=== PATIENT | male | born 1975 | race Caucasian/White ===

== ENCOUNTER 2018-03-25 14:56 | Emergency (ER) | payer SELFPAY ==
[2018-03-25 15:13] VITALS: BP 130/92
--- NOTE | 2018-03-25 15:15 | UC ---
Ear Complaint HPI - HPI Summary HPI Summary: 42 yo male presents with sinus pain/pressure/congestion, R>L ear pain, and headache for the last 3 days getting progressively worse. He tells me that he has a hx of ear infections. Has felt hot/cold at times, but has not taken his temperature. Has not taken anything OTC. Denies sore throat, cough, SOB, chest pain, abdominal pain, n/v. - History of Current Complaint Chief Complaint: UCGeneralIllness Stated Complaint: EAR PAIN Time Seen by Provider: 03/25/18 15:15 Hx Obtained From: Patient Onset/Duration: Gradual Onset Severity Initially: Moderate Severity Currently: Severe Pain Intensity: 9 Pain Scale Used: 0-10 Numeric - Allergies/Home Medications Allergies/Adverse Reactions: Allergies Allergy/AdvReac Type Severity Reaction Status Date / Time No Known Allergies Allergy Verified 03/25/18 15:13 PMH/Surg Hx/FS Hx/Imm Hx Respiratory History: Asthma - Surgical History Surgical History: Yes Surgery Procedure, Year, and Place: nasal 2010 septum. testicular as a child - Family History Known Family History: Positive: Unknown - Social History Lives: Alone Alcohol Use: None Substance Use Type: None Smoking Status (MU): Never Smoked Tobacco Review of Systems All Other Systems Reviewed And Are Negative: Yes Constitutional: Positive: Negative Skin: Positive: Negative Eyes: Positive: Negative ENT: Positive: Ear Ache, Nasal Discharge, Sinus Congestion, Sinus Pain/ Tenderness Respiratory: Positive: Negative Cardiovascular: Positive: Negative Gastrointestinal: Positive: Negative Neurovascular: Positive: Negative Neurological: Positive: Negative Psychological: Positive: Negative Physical Exam - Summary Physical Exam Summary: GENERAL: NAD. WDWN. No pain distress. SKIN: No rashes, sores, lesions, or open wounds. HEENT: Head: AT/NC Eyes: EOM intact. Conjunctiva clear without inflammation or discharge. Ears: Hearing grossly normal. RIGHT TM with mild erythema and bulging. No canal edema or drainage. LEFT TM intact. Nose: Nasal mucosa pink and moist. TTP maxillary and frontal sinus. Throat: Posterior oropharynx without exudates, erythema, or tonsillar enlargement. Uvula midline. NECK: Supple. Nontender. No lymphadenopathy. CHEST: CTAB. No r/r/w. No accessory muscle use. Breathing comfortably and in no distress. CV: RRR. Without m/r/g. Pulses intact. NEURO: Alert. PSYCH: Age appropriate behavior. Triage Information Reviewed: Yes Vital Signs: Initial Vital Signs Temp 101.5 F 03/25/18 15:10 Pulse 101 03/25/18 15:10 Resp 18 03/25/18 15:10 BP 130/92 03/25/18 15:10 Pulse Ox 100 03/25/18 15:10 Laboratory Tests 03/25/18 15:50 Influenza A (Rapid) Negative Influenza B (Rapid) Negative Vital Signs Reviewed: Yes Ear Complaint Course/Dx - Course Course Of Treatment: Right otitis media - Differential Dx/Diagnosis Provider Diagnosis: Right otitis media Discharge - Sign-Out/Discharge Documenting (check all that apply): Patient Departure All imaging exams completed and their final reports reviewed: No Studies - Discharge Plan Condition: Stable Disposition: HOME Prescriptions: Albuterol HFA INHALER* [Ventolin HFA Inhaler*] 1 puff INH Q6H PRN #1 mdi PRN Reason: Wheezing Amoxicillin/Clavulanate TAB* [Augmentin TAB 875*] 875 mg PO BID #20 tab Patient Education Materials: Ear Infection (ED) Referrals: No Primary Care Phys,NOPCP [Primary Care Provider] - Additional Instructions: If you develop a fever, shortness of breath, chest pain, new or worsening symptoms - please call your PCP or go to the ED. Your blood pressure was high at todays visit. Please see your primary provider within 4 weeks for recheck and re-evaluation. - Billing Disposition and Condition Condition: STABLE Disposition: Home
== END 2018-03-25 16:08 | disposition home or self-care (01) ==
LOC: UCEAST 14:56
DX: H66.91 Otitis media, unspecified, right ear (principal)
CPT/HCPCS: 99202; G0463

== ENCOUNTER 2018-03-27 06:58 | Emergency (ER) | payer SELFPAY ==
[2018-03-27] MEDS ORDERED: NS 0.9% 1000 ML*IV.FLUID IV ONE (07:29)
[2018-03-27] MEDS ORDERED: Piperacillin/Tazobac ADVAN(*) 3.375 GM in NS 0.9% 100 ML* 100 ML IVPB ONE (07:29)
[2018-03-27] MEDS ORDERED: Albuterol HFA INHALER* 8 gm MDI INH ONE (07:39)
[2018-03-27] MEDS ORDERED: Ondansetron INJ* 2 MG/ML VIAL IV ONE (07:39)
--- NOTE | 2018-03-27 07:42 | ED ---
Influenza-Like Illness - HPI Summary HPI Summary: Patient is an otherwise healthy 42-year-old male presenting to the ED with 1 week history of bilateral ear pain, swollen glands, body aches, nausea, vomiting and most recently diarrhea. He was seen at the 4 days ago and was given Augmentin for a right-sided ear infection. He states since that time he has been having diarrhea. He states he is unable to sleep. Endorses fevers, sweats, chills. Fever is subjective. Endorses diffuse body aches. He did not receive the flu vaccination this year. He denies any throat pain, rhinorrhea or cough. Denies any chest pain. He is otherwise healthy, takes no medications and denies any known allergies. - History of Current Complaint Chief Complaint: EDNauseaVomitDiarrh Time Seen by Provider: 03/27/18 07:15 Hx Obtained From: Patient Onset/Duration: Sudden Onset Severity: Moderate Associated Signs & Symptoms: Fever, T Max - 100, F/C, Myalgia, Vomiting, Diarrhea Related Hx: Possible Flu/Infectious Exposure - Risk Factors Influenza Risk Factors: Negative - Allergy/Home Medications Allergies/Adverse Reactions: Allergies Allergy/AdvReac Type Severity Reaction Status Date / Time No Known Allergies Allergy Verified 03/25/18 15:13 PMH/Surg Hx/FS Hx/Imm Hx Previously Healthy: Yes Endocrine/Hematology History: Denies: Hx Diabetes, Hx Thyroid Disease Cardiovascular History: Denies: Hx Hypertension Respiratory History: Reports: Hx Asthma Denies: Hx Chronic Obstructive Pulmonary Disease (COPD) GI History: Denies: Hx Ulcer - Surgical History Surgery Procedure, Year, and Place: nasal 2010 septum. testicular as a child - Immunization History Hx Pertussis Vaccination: No Immunizations Up to Date: Yes Infectious Disease History: No Infectious Disease History: Denies: Hx Hepatitis, Hx Human Immunodeficiency Virus (HIV), Traveled Outside the [place] in Last 30 Days - Family History Known Family History: Positive: Unknown - Social History Occupation: Employed Full-time Lives: With Family Alcohol Use: None Hx Substance Use: No Substance Use Type: Reports: None Hx Tobacco Use: No Smoking Status (MU): Never Smoked Tobacco Review of Systems - ROS Summary Review of Systems Summary: Constitutional: The patient endorses fever, headache, sweats, chills. HEENT: Head: The patient denies dizziness, however endorses headaches. Eyes: The patient denies diplopia, blurry vision, eye pain, eye discharge, photophobia. Throat: The patient denies sore throats or hoarseness. Cardiovascular: The patient denies chest pain, palpitations, syncope, night cramps, or orthostasis. Respiratory: The patient denies cough, sputum production, hemoptysis, dyspnea, wheezing. Gastrointestinal: The patient denies odynophagia, dysphagia, hematemesis, melenemesis. Endorses mild abdominal pain, nausea, vomiting and most recently diarrhea after taking abx. Genitourinary: Patient denies dysuria, hematuria, or pyuria. Patient denies back pain. Denies other urinary symptoms. Muscles: The patient endorses diffuse myalgias and weakness. Joints: The patient endorses arthralgias diffusely throughout. Neurologic: The patient denies headache, loss of consciousness, or seizure. Dermatologic: The patient denies hyperpigmentation, rash, or photosensitivity. Denies any known tick bites. Positive: Fever, Chills, Fatigue, Skin Diaphoresis Negative: Blurred Vision, Diplopia, Drainage Positive: Ear Ache. Negative: Epistaxis, Dental Pain, Sore Throat, Nasal Discharge Negative: Palpitations, Chest Pain Negative: Shortness Of Breath, Cough Positive: Abdominal Pain, Vomiting, Diarrhea, Nausea Genitourinary: Negative Positive: no symptoms reported, see HPI Positive: Myalgia. Negative: Arthralgia Negative: Rash, Bruising Positive: Weakness. Negative: Headache, Paresthesia, Numbness, Syncope All Other Systems Reviewed And Are Negative: Yes Physical Exam - Summary Physical Exam Summary: Appearance: Appears ill, diaphoretic Skin: Soft dry skin, no lesions. Diaphoretic. Eyes: MARIA G, EOMI, Conjunctiva pink with no redness or exudates. Ears: TMs normal with positive cone of light, no erythema bilaterally. Mouth: Dentition without lesions. Dry mucosa. Neck: Full range of motion. Palpable thyroid. Trachea at midline. No lymphadenopathy. Pulm: Chest symmetrical expansion. No deformities on posterior chest wall. Lungs clear to auscultation and percussion, without adventitious sounds. CV: No JVD. No deformities on anterior chest wall. Heart sounds. RRR. Normal S1 and single S2. No S3, S4, rubs, or murmurs. Carotids 2+ bilaterally without bruits. . exam not performed GI: Bowel sounds WNL in all 4 quadrants. No pain on deep palpation of all 4 quadrants. Negative waters's, negative obturator. Psoas not performed. No pain over Mcburney's point. Musculoskeletal: Flexion and extension of neck without limitations. ROM WNL in all extremities. No deformities noted. Pulses +2 bilaterally. Neuro: Motor strength is 5/5 in upper and lower extremities bilaterally. A&OX3 Psych: Logical, coherent Triage Information Reviewed: Yes Vital Signs On Initial Exam: Initial Vitals Temp Pulse Resp BP Pulse Ox 100 F 110 20 145/76 98 03/27/18 07:00 03/27/18 07:00 03/27/18 07:00 03/27/18 07:00 03/27/18 07:00 Vital Signs Reviewed: Yes Appearance: Positive: Ill-Appearing Skin: Positive: Skin Color Reflects Adequate Perfusion, Diaphoretic Head/Face: Positive: Normal Head/Face Inspection Eyes: Positive: EOMI, MARIA G, Conjunctiva Clear ENT: Positive: Pharynx normal, TMs normal, Uvula midline. Negative: Nasal congestion, Nasal drainage, Tonsillar swelling, Tonsillar exudate, Sinus tenderness Neck: Positive: Supple, No Lymphadenopathy Respiratory/Lung Sounds: Positive: Clear to Auscultation, Breath Sounds Present Cardiovascular: Positive: RRR, Pulses are Symmetrical in both Upper and Lower Extremities Abdomen Description: Positive: Nontender, No Organomegaly, Bruit Bowel Sounds: Positive: Present Musculoskeletal: Positive: Normal, Strength/ROM Intact Neurological: Positive: Sensory/Motor Intact, Alert, Oriented to Person Place, Time, Speech Normal Psychiatric: Positive: Normal, Affect/Mood Appropriate AVPU Assessment: Alert Diagnostics - Vital Signs Vital Signs Temp Pulse Resp BP Pulse Ox 03/27/18 07:00 100 F 110 20 145/76 98 - Laboratory Result Diagrams: 03/27/18 09:01 03/27/18 08:28 Lab Statement: Any lab studies that have been ordered have been reviewed, and results considered in the medical decision making process. Flu Symptom Course/Dx - Course Course Of Treatment: Sepsis protocol initiated. Despite taking Tylenol and ibuprofen, patient arrives with a 100.0 temperature, heart rate of 110, respirations 20, 98% on room air. Patient is diaphoretic and appears ill. Chest x-ray obtained, urinalysis obtained. IV fluids and Zosyn per sepsis protocol initiated. Flu swab obtained. Chest x-ray shows no active acute cardiopulmonary disease. UA obtained which shows protein and blood without leukocytes or WBCs. Patient continues to deny any abdominal pain or back pain. Negative for CVA tenderness on physical exam. No abdominal distention, negative Waters's negative Rovsing's negative psoas. He is at 13,000 leukocytosis. Patient is improved after fluids and Zosyn is given. There is no clear indication of arterial infection. Patient will remain on his Augmentin for his ear infection which appears to be have cleared up at this time on physical exam. He will continue at home fluids, ibuprofen and Tylenol. He is given Zofran for any nausea. He will return if he develops any worsening symptoms. He is diagnosed with viral syndrome. Influenza negative. - Diagnoses Differential Diagnosis/HQI/PQRI: Positive: Pneumonia, Upper Respiratory Infection Provider Diagnoses: Viral syndrome Critical Care Time: 30-74 min Discharge - Sign-Out/Discharge Documenting (check all that apply): Patient Departure - Discharge Plan Condition: Stable Disposition: HOME Prescriptions: Ondansetron ODT TAB* [Zofran 4 MG Odt TAB*] 4 mg PO Q6H PRN #12 tab.odt MDD 4 PRN Reason: Nausea Patient Education Materials: Dehydration (ED), Acute Nausea and Vomiting (ED), Viral Syndrome (ED) Referrals: No Primary Care Phys,NOPCP [Primary Care Provider] - Additional Instructions: Zofran as needed up to every 4 hours for nausea and vomiting Drink plenty of fluids including Gatorade and paul mikaela Try to even possible Tylenol 650 mg 4 times daily Ibuprofen 600 mg 4 times daily Use these intermittently Get plenty of rest Return to the ED if he develop any worsening symptoms - Billing Disposition and Condition Condition: STABLE Disposition: Home
[2018-03-27 08:06] LABS: Urine Appearance Cloudy; Urine Bacteria Absent (Absent); Urine Bilirubin Negative (Negative); Urine Blood 1+ (Negative); Urine Color Amber; Urine Glucose Negative (Negative); Urine Ketones Trace (Negative); Urine Nitrite Negative (Negative); Urine Protein 2+(100 mg/dL) (Negative); Urine Red Blood Cell Trace(0-2/hpf) (Absent); Urine Specific Gravity 1.028 (1.010-1.030); Urine Urobilinogen Positive (Negative); Urine White Blood Cell Trace(0-5/hpf) (Absent)
[2018-03-27 08:47] LABS: Activated Partial Thrombo Time 18.8 seconds (26.0-36.3); INR 1.1 (0.77-1.02)
[2018-03-27 08:55] LABS: Albumin/Globulin Ratio 0.8 (1-3); BUN/Creatinine Ratio 16.7 (8-20); C Reactive Protein 178.4 mg/L (<8.01); Calcium 8.2 mg/dL (8.6-10.3); EGFR Non-African American 86.3 (>60); Globulin 3.8 g/dL (2-4); Potassium 3.5 mmol/L (3.5-5.0); Total Bilirubin 0.8 mg/dL (0.2-1.0); Total Protein 6.8 g/dL (6.4-8.9)
[2018-03-27 09:08] LABS: ABS Basophils 0 10^3/ul (0-0.2); ABS Eosinophils 0 10^3/ul (0-0.6); ABS Lymphocytes 1.4 10^3/ul (1.0-4.8); ABS Monocytes 1.4 10^3/ul (0-0.8); ABS Neutrophils 10.8 10^3/ul (1.5-7.7); ABS Nucleated RBC 0 10^3/ul; Eosinophil % 0.1 %; Hematocrit 37 % (42-52); Hemoglobin 12.6 g/dl (14.0-18.0); Lymphocyte % 10.6 %; Mean Corpuscular HGB Conc 34 g/dl (31-36); Mean Corpuscular Hemoglobin 29 pg (27-31); Mean Corpuscular Volume 85 fL (80-94); Mean Platelet Volume 7.8 fL (7.4-10.4); Nucleated Red Blood Cells % 0.1; Platelet Count 236 10^3/ul (150-450); Red Blood Count 4.32 10^6/ul (4.00-5.40); Red Cell Distribution Width 13 % (10.5-15); White Blood Count 13.7 10^3/ul (3.5-10.8)
[2018-03-27 10:04] LABS: Erythrocyte Sed Rate 59 mm/Hr (0-14)
[2018-03-27 10:59] VITALS: BP 120/72
[2018-03-27] MEDS ORDERED: Ondansetron ODT TAB* 4 MG SL ONE (11:03)
== END 2018-03-27 11:22 | disposition home or self-care (01) ==
LOC: ED 06:58
DX: B34.9 Viral infection, unspecified (principal); R50.9 Fever, unspecified; R53.83 Other fatigue; H92.09 Otalgia, unspecified ear; R53.1 Weakness; R10.9 Unspecified abdominal pain; R11.2 Nausea with vomiting, unspecified; R19.7 Diarrhea, unspecified
CPT/HCPCS: 36415; 71046; 80053; 81003; 81015; 83605; 84484; 85025; 85610; 85652; 85730; 86140; 87040; 87086; 96361; 96365; 96375; 99283; A9270-GY; J2405; J2543